=== PATIENT | female | born 1965 | race African-American/Black ===

== ENCOUNTER 2017-08-24 07:51 | Emergency (ER) | payer OTHER ==
[~2017-08-24] VITALS: Ht 177.8 cm; Wt 115.0 kg
[~2017-08-24 07:51] MED LIST: ANT25 PO; FLNIN/ NAE; GLC500 PO; OMEP40CA41 PO; ONDA4TAB65 PO; ZLF/100 PO
[2017-08-24 08:00] VITALS: TEMP 37; O2SAT 95; Ht 177.8 cm; Wt 115.0 kg
[2017-08-24 08:34] LABS: BASO % 0.2 %; BASO ABS # 0.01 K/uL (0-0.2); EOS % 1.9 %; EOS ABS # 0.09 K/uL (0-0.5); HEMATOCRIT 36.2 % (37-47); HEMOGLOBIN 12.1 g/dL (12.0-16.0); IG# 0.01 K/uL (0.00-0.02); LYMPH % 25.8 %; LYMPH ABS # 1.25 K/uL (1.2-3.4); MEAN CELL VOLUME 83.6 fL (80-100); MEAN CORPUSCULAR HEMOGLOBIN 27.9 pg (25-34); MEAN CORPUSCULAR HGB CONC 33.4 g/dl (32-36); MEAN PLATELET VOLUME 9.9 fL (7.4-10.4); MONO ABS # 0.29 K/uL (0.11-0.59); NEUT % 65.9 %; PLATELET COUNT 206 K/uL (130-400); RED CELL DISTRIBUTION WIDTH CV 13.3 % (11.5-14.5); RED CELL DISTRIBUTION WIDTH SD 40.8 fL (36.4-46.3); WHITE BLOOD COUNT 4.85 K/uL (4.8-10.8)
[2017-08-24 08:52] LABS: ALBUMIN 3.6 gm/dl (3.4-5.0); CALCIUM 9.2 mg/dl (8.5-10.1); CREATININE 0.72 mg/dl (0.60-1.20); POTASSIUM 3.6 mmol/L (3.5-5.1)
[2017-08-24 08:55] LABS: TOTAL PROTEIN 7.6 gm/dl (6.4-8.2)
[2017-08-24] MEDS ORDERED: ROSU10TA35 PO (09:13)
[2017-08-24] MEDS ORDERED: AMLO-114 PO (09:13)
[2017-08-24] MEDS ORDERED: LEVO150T PO ×2 (09:13)
--- NOTE | 2017-08-24 09:21 | DIAGNOSTIC IMAGING REPORT ---
CHEST ONE VIEW PORTABLE HISTORY: Atypical CHEST PAIN COMPARISON: Chest 11/20/2013. FINDINGS: The lungs are clear. The heart remains mildly enlarged. No pleural effusions. No pneumothorax. No rib fractures. IMPRESSION: No significant change compared to the prior study. No acute process. Stable mild cardiomegaly. Electronically signed by: Carl Clemente M.D. 08/24/2017 9:20 AM Dictated Date/Time: 08/24/2017 9:18 AM
[2017-08-24 11:22] VITALS: BP 142/87; PULSE 78; O2SAT 97
--- NOTE | 2017-08-24 15:22 | EMERGENCY ROOM VISIT NOTE ---
ED Visit Note First contact with patient: 07:57 Chief Complaint: Chest pain. History of Present Illness: Ms. Chambers is a 52 year-old black female who ambulates into the ED complaining of left sided chest pain. Historically patient reports she has a history of chronic left-sided chest pain ; on July 26 she had a heart catheterization performed at [facility] in [place] and was found to have mild to moderate coronary artery disease, proximal LAD 40-50% stenosed, left ventricular end- diastolic pressure is mildly elevated and moderate hypertension. Additionally she reports she has a history of thyroid cancer and during her admission for the heart catheterization her Synthroid was increased from 150 mcg to 225 mcg. Patient reports she has daily left sided chest pain just over the sternal border that she describes as an achy sensation. She reports yesterday she was walking her dog and the achiness sensation became a pressure sensation. Since her walk with the dog she has been having alternating hard normal achy sensation and her chest pressure sensation. She is not kept track of the timing or events that changes the quality/quantity of her pain. When she is having a pressure-like sensation she does have radiation of the pain towards the right shoulder area. Just rest in time relieve her discomfort. She has not specifically identified any additional factors related to the increase of her discomfort except for the walking. Associated with her symptoms she reports she has noted that her blood pressure has been elevated over the last few days and that she is having paresthesia sensations in the perioral area. She did take 81 mg of aspirin prior to arrival at the hospital with no relief of her discomfort; she reports she did not take her prescribed nitroglycerin. Patient denies fevers, chills, sweats, skin eruptions, skin color changes, upper respiratory tract symptoms, wheezing, cough, shortness of breath, orthopnea, dependent edema, previous clots, claudication, cramping, recent surgery/inactivity/extended travel, abdominal pain, nausea, vomiting, diarrhea, constipation, rectal bleeding, black/tarry stools, urinary symptoms, back/flank pain. Review of Systems: As noted above in history of present illness. All body systems were reviewed and found to be negative as noted above. Past Medical History: As previously noted and GERD, prediabetes, hypothyroidism. Current Medications: Medications Dose Route/Sig Max Daily Dose Days Date Category Dose Instructions Rosuvastatin Calcium 10 Mg Tab 10 Mg PO DAILY 08/24/17 Reported Norvasc (Amlodipine Besylate) 10 Mg Tab 10 Mg PO DAILY 08/24/17 Reported Synthroid (Levothyroxine Sodium) 150 Mcg Tab 225 Mcg PO WK 08/24/17 Reported TAKES SUNDAYS Synthroid (Levothyroxine Sodium) 150 Mcg Tab 150 Mcg PO DAILY 08/24/17 Reported Prilosec (Omeprazole) 40 Mg Cap 40 Mg PO DAILY 05/30/14 Reported Fluticasone Propionate 120 Sprays/6000 Mcg Inha 2 Sprays IVETT DAILY 05/30/14 Reported Allergies to Medications: Metoclopramide. Social History: Patient is currently employed; she feels safe in her home environment; she denies tobacco and alcohol use. Physical Examination: Vital Signs: Date Time Temp Pulse Resp B/P (MAP) Pulse Ox O2 Delivery O2 Flow Rate FiO2 08/24/17 11:22 78 20 142/87 97 08/24/17 10:16 66 18 146/78 95 Room Air 08/24/17 08:52 70 20 142/96 98 Room Air 08/24/17 08:22 73 18 149/81 97 Room Air 08/24/17 08:00 37.0 81 20 179/93 95 Room Air GENERAL: 52-year-old female in mild distress due to symptoms, nontoxic-appearing , afebrile and hemodynamically stable. NEUROLOGICAL: Awake, alert and oriented to person, place and time. Answering questions appropriately and following commands. Normal gait. Good hand eye coordination. SKIN: Warm, dry and pink. No soft tissue eruptions or trauma noted. HEENT: Atraumatic and normocephalic. PERRLA. Sclera white and conjunctiva pink. Oral cavity moist and pink. Pharynx is nonerythematous or edematous. Speech normal. No lymphadenopathy. Trachea midline. No jugular venous distention. No carotid bruits. BACK: No tenderness over the bony spine. No CVA tenderness. THORAX: Lungs sounds are clear to auscultation and equal bilaterally with symmetrical chest wall. No wheezing, rales or rhonchi. No crepitus, tenderness , subcutaneous air or deformities noted. HEART: Regular rate and rhythm. No gallops, rubs or murmurs are appreciated. No lifts, heaves or thrills. PMI is not displaced. ABDOMEN: Flat, soft and nontender. Positive bowel sounds in all quadrants. No guarding, rigidity or organomegaly. EXTREMITIES: Moves all extremities well on command and with purpose. All distal neurovascular statuses are intact and equal bilaterally. No dependent edema or calf tenderness/cords. ED Course: Patient is assessed as noted above. Laboratory Testing: Test 08/24/17 08:13 08/24/17 08:31 Range/Units White Blood Count 4.85 4.8-10.8 K/uL Red Blood Count 4.33 4.2-5.4 M/uL Hemoglobin 12.1 12.0-16.0 g/dL Hematocrit 36.2 37-47 % Mean Corpuscular Volume 83.6 80-100 fL Mean Corpuscular Hemoglobin 27.9 25-34 pg Mean Corpuscular Hemoglobin Concent 33.4 32-36 g/dl Platelet Count 206 130-400 K/uL Mean Platelet Volume 9.9 7.4-10.4 fL Neutrophils (%) (Auto) 65.9 % Lymphocytes (%) (Auto) 25.8 % Monocytes (%) (Auto) 6.0 % Eosinophils (%) (Auto) 1.9 % Basophils (%) (Auto) 0.2 % Neutrophils # (Auto) 3.20 1.4-6.5 K/uL Lymphocytes # (Auto) 1.25 1.2-3.4 K/uL Monocytes # (Auto) 0.29 0.11-0.59 K/uL Eosinophils # (Auto) 0.09 0-0.5 K/uL Basophils # (Auto) 0.01 0-0.2 K/uL RDW Standard Deviation 40.8 36.4-46.3 fL RDW Coefficient of Variation 13.3 11.5-14.5 % Immature Granulocyte % (Auto) 0.2 % Immature Granulocyte # (Auto) 0.01 0.00-0.02 K/uL D-Dimer 450 0-500 ug/L FEU Sodium Level 140 136-145 mmol/L Potassium Level 3.6 3.5-5.1 mmol/L Chloride Level 107 98-107 mmol/L Carbon Dioxide Level 25 21-32 mmol/L Anion Gap 8.0 3-11 mmol/L Blood Urea Nitrogen 13 7-18 mg/dl Creatinine 0.72 0.60-1.20 mg/dl Est Creatinine Clear Calc Drug Dose 125.7 ml/min Estimated GFR () 111.6 Estimated GFR (Non- 96.3 BUN/Creatinine Ratio 17.9 10-20 Random Glucose 93 70-99 mg/dl Calcium Level 9.2 8.5-10.1 mg/dl Magnesium Level 2.1 1.8-2.4 mg/dl Total Bilirubin 0.5 0.2-1 mg/dl Direct Bilirubin 0.1 0-0.2 mg/dl Aspartate Amino Transf (AST/SGOT) 22 15-37 U/L Alanine Aminotransferase (ALT/SGPT) 27 12-78 U/L Alkaline Phosphatase 60 45-117 U/L Total Protein 7.6 6.4-8.2 gm/dl Albumin 3.6 3.4-5.0 gm/dl Lipase 137 73-393 U/L Thyroid Stimulating Hormone (TSH) 0.159 0.300-4.500 uIu/ml Bedside Troponin I < 0.030 0-0.045 ng/ml Chest X-Rays: Was read by myself and the radiologist showing no acute infiltrates, effusions or pneumothorax. Mildly enlarged heart silhouette. Normal bony anatomy. This was compared to her previous and no significant changes were noted. EKG: Was read by myself and reviewed with Dr. Camp; shows normal sinus rhythm with a ventricular rate of 79 bpm. Normal axis, intervals and complexes. No acute ST changes indicating ischemia or injury; this was compared to a previous from October 2012 in no acute changes were noted. Patient was offered nitroglycerin for pain and refused. Patient was reassessed multiple times during her stay in the emergency department. Patient's case was reviewed with Dr. Camp; we agreed on diagnostic approach, treatment, disposition and plan. Patient was educated about today's findings and instructed on her treatment plan ; she verbalizes understanding and agreement with this plan. Clinical Impression: Left-sided chest pain. Decision-Making: Initially my differential diagnosis I considered acute coronary syndrome, congestive heart failure, pneumothorax, pneumonia, pulmonary embolism and other causes. Disposition: Patient discharged home in stable condition; prior to departure she was reassessed and subjectively reported that she was pain and symptom-free. Plan: Patient was encouraged to continue her current medications as prescribed. Patient was encouraged to follow-up with personal physician for recheck for her thyroid function tests and her hypertension. Patient was encouraged return the ED for worsening symptoms, fevers, chills, coughing up blood, abdominal pain, vomiting or any new/concerning symptoms.
== END 2017-08-24 11:22 | disposition home or self-care (01) ==
LOC: C.EDB 07:53 → C.EDA 11:22
DX: R07.9 Chest pain, unspecified (principal); K21.9 Gastro-esophageal reflux disease without esophagitis; R73.03 Prediabetes; E03.9 Hypothyroidism, unspecified; Z88.8 Allergy status to other drugs, medicaments and biological substances